=== PATIENT | female | born 1955 | race Caucasian/White ===

== ENCOUNTER → 2018-09-29 | Outpatient (CLI) | payer BC ==
--- NOTE | 2018-09-29 09:40 | MR ---
EXAMINATION TYPE: MR brain wo con DATE OF EXAM: 09/29/2018 COMPARISON: NONE HISTORY: Mild cognitive impairment and/or mild dementia per order and patient. TECHNIQUE: Multiplanar, multisequence imaging of the brain and brainstem is performed without IV cont rast. FINDINGS: Diffusion weighted images demonstrate no evidence of a recent infarct or other diffusion abnormality. There is no worrisome extra-axial fluid collection. There is mild ventricular and sulcal prominence c onsistent with mild diffuse cerebral atrophy. There are some scattered foci of T2 hyperintensity seen throughout the brain bilaterally most prominent deep and periventricular regions. Approximately 10-1 5 scattered lesions are seen. There is involvement of the bilateral latesha noted. Midline structures demonstrate normal morphology. The craniocervical junction appears within normal limits. Normal vascular flow voids are present. The visualized sinuses are clear and the globes are i ntact. Nasal septum is deviated to left of midline. IMPRESSION: There is mild diffuse cerebral atrophy and mild to moderate chronic small vessel ischemic change. No evidence of a recent infarct noted.
== END ==
LOC: RADMRIMAIN 08:16
PROVIDERS: ATTEND Psychiatry & Neurology Neurology
DX: G31.1 Senile degeneration of brain, not elsewhere classified (principal); I67.82 Cerebral ischemia
CPT/HCPCS: 70551